=== PATIENT | male | born 1965 | race Hispanic/Latino ===

== ENCOUNTER 2024-09-30 06:00 | Day surgery (SDC) | payer MEDICARE, MEDICAID ==
[2024-09-30] MEDS ORDERED: Midazolam HCl 2 mg/2 ml Vial ONE (08:18)
[2024-09-30] MEDS ORDERED: PROPOFOL 40 ML ONE (08:35)
[2024-09-30] MEDS ORDERED: Lidocaine 1% PF 5 ML VIAL ONE (09:07)
== END 2024-09-30 09:59 | disposition home or self-care (01) ==
LOC: SDC 06:00
PROVIDERS: ATTEND Internal Medicine Gastroenterology
PROC: 0DJ08ZZ Inspection of Upper Intestinal Tract, Via Natural or Artificial Opening Endoscopic (ICD-10-PCS; principal; 2024-09-30)
DX: R11.10 Vomiting, unspecified (principal); F71 Moderate intellectual disabilities; F31.9 Bipolar disorder, unspecified; F20.9 Schizophrenia, unspecified; E78.5 Hyperlipidemia, unspecified; D64.9 Anemia, unspecified; K21.9 Gastro-esophageal reflux disease without esophagitis; Z98.890 Other specified postprocedural states; Z79.899 Other long term (current) drug therapy
CPT/HCPCS: 43235; J2250; J2704